=== PATIENT | female | born 2000 | race Caucasian/White ===

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

== ENCOUNTER 2022-01-30 08:00 | Outpatient (CLI) | payer OTHER | END 2022-01-30 23:59 | disposition home or self-care (01) | LOC: LAB.S 08:00 | PROVIDERS: ATTEND Physician Assistant | DX: R07.0 Pain in throat (principal) | CPT/HCPCS: 87070 ==